=== PATIENT | male | born 1965 | race Asian ===

== ENCOUNTER 2021-01-11 09:49 | Outpatient (CLI) | payer OTHER | END 2021-01-11 21:46 | disposition home or self-care (01) | LOC: RESP 09:49 | PROVIDERS: ATTEND Specialist | DX: M54.2 Cervicalgia (principal); M54.12 Radiculopathy, cervical region; M48.02 Spinal stenosis, cervical region; M47.892 Other spondylosis, cervical region | CPT/HCPCS: 95885; 95911 ==